=== PATIENT | female | born 1965 | race Hispanic/Latino ===

== ENCOUNTER 2021-05-30 12:03 | Outpatient (CLI) | payer SELFPAY ==
[2021-05-30 21:47] LABS: SARS-CoV-2 PCR by NAA Not Detected (NotDetected)
== END 2021-05-30 12:04 | disposition home or self-care (01) ==
LOC: CSHLAB 12:03
PROVIDERS: ATTEND Internal Medicine Gastroenterology
DX: Z20.822 Contact with and (suspected) exposure to COVID-19 (principal); Z12.11 Encounter for screening for malignant neoplasm of colon
CPT/HCPCS: U0003; U0005

== ENCOUNTER 2021-06-04 06:37 | Day surgery (SDC) | payer OTHER ==
[2021-06-03 10:12] VITALS: BMI 25.9
[2021-06-04] MEDS ORDERED: Lidocaine 1% MPF 2 ML VIAL ONE (07:31)
[2021-06-04] MEDS ORDERED: PROPOFOL 20 ML ONE ×2 (08:22)
[2021-06-04] MEDS ORDERED: Lidocaine 1% PF 5 ML VIAL ONE (08:24)
== END 2021-06-04 09:55 | disposition home or self-care (01) ==
LOC: CSHSDC 06:37
PROVIDERS: ATTEND Internal Medicine Gastroenterology
PROC: 0DJD8ZZ Inspection of Lower Intestinal Tract, Via Natural or Artificial Opening Endoscopic (ICD-10-PCS; principal; 2021-06-04)
DX: R10.30 Lower abdominal pain, unspecified (principal); K64.9 Unspecified hemorrhoids; M54.9 Dorsalgia, unspecified; G89.29 Other chronic pain; G47.30 Sleep apnea, unspecified; E03.9 Hypothyroidism, unspecified; G43.909 Migraine, unspecified, not intractable, without status migrainosus; F32.A Depression, unspecified; K21.9 Gastro-esophageal reflux disease without esophagitis; J45.909 Unspecified asthma, uncomplicated
CPT/HCPCS: J2704